=== PATIENT | female | born 1970 | race Caucasian/White ===

== ENCOUNTER 2019-03-16 09:45 | Emergency (ER) | payer BC, OTHER ==
--- OUTSIDE RECORDS SUMMARY | 2019-03-16 10:45 | XMS REPORT | Continuity of Care Document ---
:1970 External Reference #:[id number] Author Name Harriet Goodwin MD Address [address] [place] [address] Problems Active Problems Provider Date Impaired fasting glycaemia Harriet Goodwin MD Onset: 03/07/2011 Herpes simplex without complication Harriet Goodwin MD Onset: 02/06/2005 Excessive and frequent menstruation Harriet Goodwin MD Onset: 02/06/2005 Atopic dermatitis Harriet Goodwin MD Onset: 05/02/2014 Essential hypertension Harriet Goodwin MD Onset: 12/15/2014 Pure hyperglyceridemia Harriet Goodwin MD Onset: 12/15/2014 Acute stress disorder Harriet Goodwin MD Onset: 09/10/2016 Erythematous condition Harriet Goodwin MD Onset: 01/06/2018 Social History Type Date Description Comments Sex Unknown ETOH Use Rarely consumes alcohol Tobacco Use Start: Unknown End: Unknown Patient is a former smoker Smoking Status Reviewed: 07/30/18 Patient is a former smoker Allergies, Adverse Reactions, Alerts Active Allergies Reaction Severity Comments Date Penicillin 06/03/2009 Bupropion Side Effect Of Prickling , Hives 05/15/2015 Medications Active Medications SIG Qnty Indications Ordering Date Provider Buspirone HCL 2/3 tab by mouth 270tabs F43.0 Harriet Goodwin, 07/31/2018 15mg up to three MD Tablets times a day as needed for anxiety Ramipril take 1 capsules 90caps I10 Yobany Jordan, 06/13/2015 10mg Capsules by mouth every DO day Valacyclovir HCL 1 every 12 hours 90tabs B00.9 Harriet Goodwin, 04/06/2013 500mg x 3 days as MD Tablets needed Ibuprofen 1 by mouth three 90tabs Unknown 800mg Tablets times a day with food x 1 week then as needed Womens Daily Formula 1 by mouth every Unknown day Tablets Norethindrone 1 by mouth every Unknown 0.35mg day Tablets Brisdelle take 1 capsule Unknown 7.5mg Capsules by mouth daily at bedtime Immunizations CPT Code Status Date Vaccine Lot # [id number] Given 12/29/2018 Influenza Virus Vaccine,Quadrivalent,Split,Preserv Free, 0.5mL,Im [id number] Given 01/05/2018 Flu Vaccine NOS [id number] Given 05/11/2015 Afluria Or Fluvirin Flu Vac Intramuscular [id number] Given 10/06/2013 Tetanus And Diptheria Toxoid 7 Years And Older Preserv Free [id number] Refused 06/24/2017 Afluria Or Fluvirin Flu Vac Intramuscular Vital Signs Date Vital Result Comment 02/04/2019 4:14pm Weight 176.00 lb Heart Rate 80 /min BP Systolic 130 mmHg BP Diastolic 74 mmHg Respiratory Rate 16 /min Height 62.5 inches 5'2.50" O2 % BldC Oximetry 98 % Ra BMI (Body Mass Index) 31.7 kg/m2 07/30/2018 3:07pm Weight 170.00 lb Heart Rate 78 /min BP Systolic 130 mmHg BP Diastolic 82 mmHg Respiratory Rate 18 /min Height 62.5 inches 5'2.50" O2 % BldC Oximetry 98 % Ra BMI (Body Mass Index) 30.6 kg/m2 Results Description No Information Available Procedures Date Code Description Status 07/15/2018 [id number] Mammogram Completed 06/09/2015 [id number] Mammogram Completed Medical Devices Description No Information Available Encounters Description No Information Available Assessments Date Code Description Provider 02/04/2019 E66.9 Obesity, unspecified Harriet Goodwin MD 02/04/2019 R73.01 Impaired fasting glycaemia Harriet Goodwin MD 02/04/2019 B00.9 Herpes simplex without complication Harriet Goodwin MD 02/04/2019 N92.0 Excessive and frequent menstruation Harriet Goodwin MD 02/04/2019 L20.9 Atopic dermatitis, unspecified Harriet Goodwin MD 02/04/2019 I10 Essential (primary) hypertension Harriet Goodwin MD 02/04/2019 F43.0 Acute stress reaction Harriet Goodwin MD 02/04/2019 Z68.31 Body mass index (BMI) 31.0-31.9, adult Harriet Goodwin MD Plan of Treatment 02/04/2019 - Harriet Goodwin MDE66.9 Obesity, unspecifiedComments:encourage healthy moderate diet and exercise.R73.01 Impaired fasting glycaemiaNew Labs: Hemoglobin A1c, Scheduled: 07/29/19Comments:Impaired fasting glucose is the prediabetic range. HbA1c is 5.7. We will repeat labs on this patient during the next office visit.Follow up:Follow up as scheduled - check fasting labs prior.B00.9 Herpes simplex without complicationComments:She has not used her valacyclovir medication. She will call for refill of her medication.N92.0 Excessive and frequent menstruationComments:Her menstrual cycles are controlled was the use of control pills. This also helps with her symptoms of hot flashes. she does not want to stop this yet and is aware of potential adverse effectsof use of hormones in women over age 40.L20.9 Atopic dermatitis, unspecifiedComments:Improved with gluten reduced diet.I10 Essential (primary) hypertensionNew Labs:CBC With Diff, Scheduled: 07/29/19TSH, Ultrasenstive, Scheduled: 07/29/19Basic Metabolic Panel, Scheduled: 07/29/19Comments:Blood pressure is managed with the current medication. Continue with this.F43.0 Acute stress reactionComments:Buspirone is working well for her anxiety. Continue current medication.Z68.31 Body mass index (BMI) 31.0-31.9, adultComments:The BMI is the ratio between height and weight. Goal for a person under age 65 is between 18.5 and25. You are overweight. Work on healthy lifestyle, with regular exercise (20 min daily will help) and eat a healthy diet. Formal diet plans work best. Functional Status Description No Information Available Mental Status Description No Information Available Referrals Description No Information Available
--- NOTE | 2019-03-16 11:29 | UC ---
Throat Pain/Nasal Amarjit HPI - HPI Summary HPI Summary: Pt presents with c/o cough, nasal congestion, sinus pressure and pain, and urinary symptoms of low back aches and urinary frequency and urgency X 1 week. - History of Current Complaint Chief Complaint: UCGeneralIllness Stated Complaint: UPPER RESPIRATORY COMPLAINT Time Seen by Provider: 03/16/19 11:09 Hx Obtained From: Patient ?: No Onset/Duration: Gradual Onset, Lasting Days, Still Present, Worse Since - onset Severity: Moderate Pain Intensity: 5 Cough: Nonproductive Associated Signs & Symptoms: Positive: Sinus Discomfort - Epiglottits Risk Factors Epiglottis Risk Factors: Negative - Allergies/Home Medications Allergies/Adverse Reactions: Allergies Allergy/AdvReac Type Severity Reaction Status Date / Time bupropion [From Wellbutrin] Allergy See Comment Verified 03/16/19 10:58 Penicillins Allergy Hives Verified 03/16/19 10:58 Home Medications: Home Medications Ibuprofen TAB* [Motrin TAB* 800 MG] 800 mg PO ONCE PRN 03/16/19 [History Confirmed 03/16/19] Ramipril CAP* [Altace CAP*] 10 mg PO DAILY 03/16/19 [History Confirmed 03/16/19] Valacyclovir HCl [Valtrex] 500 mg PO ONCE PRN 03/16/19 [History Confirmed ] guaiFENesin [Mucinex] 600 mg PO ONCE PRN 03/16/19 [History Confirmed 03/16/19] PMH/Surg Hx/FS Hx/Imm Hx Previously Healthy: Yes Cardiovascular History: Cardiac Disease, Hypertension - Surgical History Surgical History: None Surgery Procedure, Year, and Place: D&C-2017 - Family History Known Family History: Positive: Cardiac Disease - Social History Occupation: Employed Full-time Lives: With Family Alcohol Use: Occasionally Substance Use Type: None Smoking Status (MU): Never Smoked Tobacco Have You Smoked in the Last Year: No - Immunization History Vaccination Up to Date: Yes Review of Systems All Other Systems Reviewed And Are Negative: Yes Constitutional: Positive: Fever, Fatigue Eyes: Positive: Negative ENT: Positive: Sore Throat, Sinus Congestion, Sinus Pain/Tenderness Respiratory: Positive: Cough Cardiovascular: Positive: Negative Gastrointestinal: Positive: Negative Genitourinary: Positive: Frequency, Urgency Motor: Positive: Negative Neurovascular: Positive: Negative Musculoskeletal: Positive: Myalgia Neurological: Positive: Headache Psychological: Positive: Negative Is Patient Immunocompromised?: No Physical Exam Triage Information Reviewed: Yes Appearance: Ill-Appearing Vital Signs: Initial Vital Signs Temp 99.4 F 03/16/19 10:51 Pulse 84 03/16/19 10:51 Resp 18 03/16/19 10:51 BP 124/86 03/16/19 10:51 Pulse Ox 98 03/16/19 10:51 Vital Signs Reviewed: Yes Eye Exam: Normal ENT: Positive: Nasal congestion, TM bulging, Sinus tenderness, Other - PND Dental Exam: Normal Neck exam: Normal Respiratory Exam: Normal Cardiovascular Exam: Normal Abdomen Description: Positive: Nontender Musculoskeletal Exam: Normal Neurological Exam: Normal Psychological Exam: Normal Skin Exam: Normal Throat Pain/Nasal Course/Dx - Course Course Of Treatment: Pt has hx of "kidney" infection and intermittent hematuria. Pt states she has not had a "work up " for hematuria. Pt was recommended to f/u with PCP , urologist and/or vending stand supervisor. - Differential Dx/Diagnosis Differential Diagnosis/HQI/PQRI: Sinusitis, URI Provider Diagnosis: Sinusitis, Hematuria Discharge ED - Sign-Out/Discharge Documenting (check all that apply): Patient Departure All imaging exams completed and their final reports reviewed: No Studies - Discharge Plan Condition: Stable Disposition: HOME Prescriptions: Chlorphen/Dm/Acetaminophen/GG [Coricidin Hbp Day-Night Pack] 1 each PO SEE INSTRUCTIONS PRN 7 Days #1 tab PRN Reason: Cough Sulfamethox/Trimethoprim DS* [Bactrim DS 800/160 TAB*] 1 tab PO Q12H #14 tab Patient Education Materials: Sinusitis (ED), Hematuria (ED) Referrals: Harriet Goodwin MD [Primary Care Provider] - As Soon As Possible Additional Instructions: Please follow up with your PCP as needed. Please follow up with a urologist or vending stand supervisor as needed for the hematuria found at today's visit. - Billing Disposition and Condition Condition: STABLE Disposition: Home
== END 2019-03-16 11:38 | disposition home or self-care (01) ==
LOC: UCCORT 09:45
DX: J32.9 Chronic sinusitis, unspecified (principal); R31.9 Hematuria, unspecified; R53.83 Other fatigue; R35.0 Frequency of micturition; R39.15 Urgency of urination; I10 Essential (primary) hypertension; Z88.0 Allergy status to penicillin; Z88.8 Allergy status to other drugs, medicaments and biological substances; Z79.899 Other long term (current) drug therapy
CPT/HCPCS: 81003; 99202; G0463